=== PATIENT | male | born 1940 | race Caucasian/White ===

== ENCOUNTER 2019-07-02 02:49 | Inpatient (IN) | payer OTHER, MEDICARE ==
[~2019-07-02] VITALS: Ht 172.7 cm; Wt 76.5 kg
[2019-07-03 07:33] VITALS: BP 156/78
== END 2019-07-03 13:50 | disposition home or self-care (01) | DRG 378 ==
LOC: ED 03:34 → EDIP 04:53 → 4WST 06:55 → DCLOUNGE 07-03 13:40
PROVIDERS: ADMIT Internal Medicine; ATTEND Internal Medicine
PROC: 0DBH8ZZ Excision of Cecum, Via Natural or Artificial Opening Endoscopic (ICD-10-PCS; principal; 2019-07-03)
PROC: 0DBN8ZZ Excision of Sigmoid Colon, Via Natural or Artificial Opening Endoscopic (ICD-10-PCS; 2019-07-03)
PROC: 0DBK8ZZ Excision of Ascending Colon, Via Natural or Artificial Opening Endoscopic (ICD-10-PCS; 2019-07-03)
DX: K57.31 Diverticulosis of large intestine without perforation or abscess with bleeding (principal); D62 Acute posthemorrhagic anemia; I10 Essential (primary) hypertension; K40.90 Unilateral inguinal hernia, without obstruction or gangrene, not specified as recurrent; K63.5 Polyp of colon; K64.8 Other hemorrhoids; R00.0 Tachycardia, unspecified; R39.11 Hesitancy of micturition; D12.0 Benign neoplasm of cecum; Z96.651 Presence of right artificial knee joint
CPT/HCPCS: 36415; 74177; 80053; 80061; 81003; 82272; 82306; 82607; 83036; 83735; 84100; 84439; 84443; 85014; 85018; 85025; 86850; 86900; 88305; 93005; 96360; 96361; G0103; G0378; J2704; Q9967; C9113; J7030

== ENCOUNTER 2021-07-15 15:40 | Inpatient (IN) | payer MEDICARE, OTHER ==
[~2021-07-15] VITALS: Ht 172.7 cm; Wt 78.0 kg
[~2021-07-15 15:40] MED LIST: ATEN50TA41 PO; HYDR25SU3 PR; PSYL3.4P8 PO
[2021-07-15] MEDS ORDERED: SODIUM CHLORIDE 0.9% 1,000ML IVBOLUS ONE (16:00)
--- NOTE | 2021-07-15 16:06 | NUR ---
PT PRESENTS TO ED WITH C/O BRIGHT RED STOOL STARTING TODAY. LBM 1530. OSMIN SNYDER AT BEDSIDE FOR EVAL
[2021-07-15 16:17] LABS: BASOPHILS % (AUTO) 0 % (0-1); EOSINOPHILS % (AUTO) 1 % (1-7); LYMPHOCYTES % (AUTO) 15 % (22-44); MEAN CORPUSCULAR HEMOGLOBIN 32.5 pg (27.5-34.5); MEAN CORPUSCULAR HGB CONC 34.4 g/dL (33.2-36.2); MEAN PLATELET VOLUME 7.6 fL (7.4-10.4); MONOCYTES % (AUTO) 9 % (2-9); NEUTROPHILS % (AUTO) 74 % (42-75); PLATELET COUNT 189 x10^3/uL (130-400); RED BLOOD COUNT 5.29 x10^6/uL (4.38-5.82); RED CELL DISTRIBUTION WIDTH 13.9 % (9.4-14.8)
[2021-07-15 16:37] LABS: ALANINE AMINOTRANSFERASE 27 U/L (12-78); ALBUMIN 4.1 g/dL (3.4-5.0); ANION GAP 9 mmol/L (5-15); CALCIUM 8.9 mg/dL (8.5-10.1); CHLORIDE 110 mmol/L (98-107); CREATININE 1.04 mg/dL (0.7-1.3)
[2021-07-15 16:39] LABS: ALKALINE PHOSPHATASE 80 U/L (45-117); BILIRUBIN,TOTAL 0.7 mg/dL (0.2-1.0); TOTAL PROTEIN 7.7 g/dL (6.4-8.2)
--- NOTE | 2021-07-15 16:44 | NUR ---
pt going to ct at this time.
[2021-07-15 16:45] LABS: INTERNATIONAL NORMALIZED RATIO 1.04 (0.93-1.1); PROTHROMBIN TIME 11.1 Seconds (9.6-11.5)
[2021-07-15] MEDS ORDERED: OMNIPAQUE 350 MG/ML, 100ML BOTTLE ONE (17:03)
--- NOTE | 2021-07-15 17:15 | NUR ---
PT BACK FROM CT, OSMIN SNYDER AT BEDSIDE TO DISCUSS POC
[2021-07-15] MEDS ORDERED: MELATONIN 5 MG TABLET PO PRN (18:00)
[2021-07-15] MEDS ORDERED: ONDANSETRON ODT 4 MG PO PRN (18:00)
[2021-07-15] MEDS ORDERED: ENALAPRILAT 1.25 MG/ML, 2ML IVPush PRN (18:00)
[2021-07-15] MEDS ORDERED: LABETALOL 5MG/ML, 20ML IVPush PRN (18:00)
[2021-07-15] MEDS ORDERED: ONDANSETRON 2MG/ML, 2ML IVPush PRN (18:00)
[2021-07-15] MEDS ORDERED: ACETAMINOPHEN 325 MG TABLET PO PRN (18:00)
[2021-07-15 18:37] VITALS: BP 146/104
[2021-07-15 19:18] VITALS: BP 143/89
[2021-07-15] MEDS: MOVIPREP POWDER 1 PREP KIT PO SCH ×2 (19:30→23:00)
[2021-07-15] MEDS: SODIUM CHLORIDE 0.9% 1,000 ML IV SCH (21:16)
[2021-07-15 23:58] LABS: BASOPHILS % (AUTO) 0 % (0-1); EOSINOPHILS % (AUTO) 0 % (1-7); LYMPHOCYTES % (AUTO) 15 % (22-44); MEAN CORPUSCULAR HEMOGLOBIN 31.9 pg (27.5-34.5); MEAN CORPUSCULAR HGB CONC 33.9 g/dL (33.2-36.2); MEAN PLATELET VOLUME 7.3 fL (7.4-10.4); MONOCYTES % (AUTO) 7 % (2-9); NEUTROPHILS % (AUTO) 78 % (42-75); PLATELET COUNT 152 x10^3/uL (130-400); RED BLOOD COUNT 4.67 x10^6/uL (4.38-5.82); RED CELL DISTRIBUTION WIDTH 13.9 % (9.4-14.8)
[2021-07-16 00:10] LABS: ANION GAP 10 mmol/L (5-15); CALCIUM 8.5 mg/dL (8.5-10.1); CHLORIDE 109 mmol/L (98-107); CREATININE 1.09 mg/dL (0.7-1.3)
[2021-07-16 00:11] LABS: INTERNATIONAL NORMALIZED RATIO 1.09 (0.93-1.1); PROTHROMBIN TIME 11.6 Seconds (9.6-11.5)
[2021-07-16 00:48] VITALS: BP 167/88
[2021-07-16 06:31] LABS: BASOPHILS % (AUTO) 0 % (0-1); EOSINOPHILS % (AUTO) 0 % (1-7); LYMPHOCYTES % (AUTO) 7 % (22-44); MEAN CORPUSCULAR HEMOGLOBIN 32.3 pg (27.5-34.5); MEAN CORPUSCULAR HGB CONC 34.3 g/dL (33.2-36.2); MEAN PLATELET VOLUME 8.1 fL (7.4-10.4); MONOCYTES % (AUTO) 3 % (2-9); NEUTROPHILS % (AUTO) 89 % (42-75); PLATELET COUNT 141 x10^3/uL (130-400); RED BLOOD COUNT 4.65 x10^6/uL (4.38-5.82); RED CELL DISTRIBUTION WIDTH 13.8 % (9.4-14.8)
[2021-07-16 06:50] LABS: ANION GAP 9 mmol/L (5-15); CALCIUM 6.1 mg/dL (8.5-10.1); CHLORIDE 118 mmol/L (98-107); CREATININE 0.88 mg/dL (0.7-1.3)
[2021-07-16 07:07] VITALS: BP 174/92
[2021-07-16] MEDS: SODIUM CHLORIDE 0.9% 1,000 ML IV SCH (08:52)
[2021-07-16] MEDS: MOVIPREP POWDER 1 PREP KIT PO SCH ×2 (09:00→19:40)
[2021-07-16] MEDS ORDERED: GOLYTELY 4,000ML ORAL.SOL PO ONE (10:30)
[2021-07-16] MEDS ORDERED: GOLYTELY 4,000ML ORAL.SOL ONE (10:32)
[2021-07-16] MEDS ORDERED: DEXTROSE 50%, 50ML SYRINGE IVPush ONE (12:00)
[2021-07-16] MEDS ORDERED: INSULIN REGULAR 100 UNITS/ML, 3ML VIAL IVPush ONE (12:00)
[2021-07-16] MEDS ORDERED: LISINOPRIL 10 MG TABLET PO SCH (12:30)
[2021-07-16 12:47] VITALS: BP 179/99
[2021-07-16 13:00] LABS: ALANINE AMINOTRANSFERASE 25 U/L (12-78); ALBUMIN 3.8 g/dL (3.4-5.0); ANION GAP 10 mmol/L (5-15); CALCIUM 8.9 mg/dL (8.5-10.1); CHLORIDE 113 mmol/L (98-107); CREATININE 0.98 mg/dL (0.7-1.3)
[2021-07-16 13:02] LABS: ALKALINE PHOSPHATASE 69 U/L (45-117); BILIRUBIN,TOTAL 0.8 mg/dL (0.2-1.0); TOTAL PROTEIN 7.1 g/dL (6.4-8.2)
[2021-07-16 13:39] VITALS: BP 154/96
[2021-07-16] MEDS ORDERED: CHLORHEXIDINE 15 ML UDC ONE (14:10)
[2021-07-16] MEDS ORDERED: PROPOFOL 10 MG/ML, 20ML ONE (14:50)
[2021-07-16] MEDS ORDERED: FENTANYL PF 100 MCG/2ML IV PRN (15:30)
[2021-07-16] MEDS ORDERED: ONDANSETRON 2MG/ML, 2ML IVPush PRN (15:30)
[2021-07-16] MEDS ORDERED: hydrALAzine 20 MG/ML, 1ML IV PRN (15:30)
[2021-07-16] MEDS ORDERED: LABETALOL 5MG/ML, 20ML IV PRN (15:30)
[2021-07-16 19:10] VITALS: BP 162/74
[2021-07-17] MEDS: SODIUM CHLORIDE 0.9% 1,000 ML IV SCH
[2021-07-17 01:58] VITALS: BP 161/89
[2021-07-17 05:14] LABS: BASOPHILS % (AUTO) 0 % (0-1); EOSINOPHILS % (AUTO) 1 % (1-7); LYMPHOCYTES % (AUTO) 19 % (22-44); MEAN CORPUSCULAR HEMOGLOBIN 32.2 pg (27.5-34.5); MEAN PLATELET VOLUME 7.5 fL (7.4-10.4); MONOCYTES % (AUTO) 9 % (2-9); NEUTROPHILS % (AUTO) 71 % (42-75); PLATELET COUNT 158 x10^3/uL (130-400); RED BLOOD COUNT 4.21 x10^6/uL (4.38-5.82); RED CELL DISTRIBUTION WIDTH 13.7 % (9.4-14.8)
[2021-07-17 05:21] LABS: ALANINE AMINOTRANSFERASE 30 U/L (12-78); ALBUMIN 3.2 g/dL (3.4-5.0); ANION GAP 7 mmol/L (5-15); CALCIUM 8.3 mg/dL (8.5-10.1); CHLORIDE 113 mmol/L (98-107); CREATININE 0.79 mg/dL (0.7-1.3)
[2021-07-17 05:24] LABS: ALKALINE PHOSPHATASE 59 U/L (45-117); BILIRUBIN,TOTAL 0.9 mg/dL (0.2-1.0); TOTAL PROTEIN 6.4 g/dL (6.4-8.2)
[2021-07-17 06:38] LABS: MICROSCOPIC NOT IND
[2021-07-17] MEDS ORDERED: POTASSIUM CHLORIDE 20 MEQ TAB.ER.PRT PO ONE (07:00)
[2021-07-17 07:40] VITALS: BP 149/88
[2021-07-17] MEDS: MOVIPREP POWDER 1 PREP KIT PO SCH (07:56)
[2021-07-17] MEDS ORDERED: LISINOPRIL 20 MG TABLET PO SCH (09:00)
[2021-07-17] MEDS ORDERED: LISI-170 PO (11:05)
== END 2021-07-17 11:40 | disposition home or self-care (01) | DRG 379 ==
LOC: ED 16:10 → EDIP 17:44 → 4WST 18:25
PROVIDERS: ADMIT Internal Medicine; ATTEND Family Medicine
PROC: 0DJD8ZZ Inspection of Lower Intestinal Tract, Via Natural or Artificial Opening Endoscopic (ICD-10-PCS; principal; 2021-07-16 14:45)
DX: K57.31 Diverticulosis of large intestine without perforation or abscess with bleeding (principal); E87.5 Hyperkalemia; D72.829 Elevated white blood cell count, unspecified; D12.6 Benign neoplasm of colon, unspecified; K43.9 Ventral hernia without obstruction or gangrene; I16.0 Hypertensive urgency; K40.90 Unilateral inguinal hernia, without obstruction or gangrene, not specified as recurrent; K64.8 Other hemorrhoids; R29.810 Facial weakness; R00.0 Tachycardia, unspecified; R73.9 Hyperglycemia, unspecified; Z87.891 Personal history of nicotine dependence; Z82.49 Family history of ischemic heart disease and other diseases of the circulatory system; Z87.19 Personal history of other diseases of the digestive system; Z79.899 Other long term (current) drug therapy; Z86.73 Personal history of transient ischemic attack (TIA), and cerebral infarction without residual deficits
CPT/HCPCS: 36415; 70450; 74174; 80048; 80053; 81003; 82962; 83036; 85014; 85018; 85025; 85610; 85730; 86850; 86900; 87635; 93005; 99285; G0378; J1815; J2704; Q9967; J7030